=== PATIENT | male | born 1965 | race Caucasian/White ===

== ENCOUNTER 2021-08-13 00:43 | Inpatient (IN) | payer MEDICARE, OTHER ==
[~2021-08-13] VITALS: Ht 180.3 cm; Wt 54.4 kg
--- NOTE | 2021-08-13 00:54 | NUR ---
LOLA FROM [facility] FOR ELEVATED WBC AND BUN. PT A/OX0; AWAKE AND RESPONSIVE TO SOUND. PT TOLERATING R/A WELL WITH NO SOB. CONNECTED PT TO POX AND MONITOR. SAFETY MEASURES IN PLACE.
[2021-08-13] MEDS ORDERED: LIDOCAINE 2% JEL UROJET 10 ML MM ONE (01:13)
--- NOTE | 2021-08-13 01:26 | NUR ---
lac #18g s/l patent and intact. blood and COVID antigen swab collected and sent to lab
--- NOTE | 2021-08-13 01:30 | NUR ---
TOW FEEDER AT PT'S BEDSIDE
[2021-08-13 01:37] LABS: BASOPHILS % (AUTO) 0.2 % (0.0-2.0); EOSINOPHILS % (AUTO) 0.1 % (0.0-6.0); HEMATOCRIT 44 % (39-51); HEMOGLOBIN 14.5 g/dL (13.5-17.5); MEAN CORPUSCULAR HGB CONC 33 g/dl (31.0-36.0); MEAN CORPUSCULAR VOLUME 94 fL (80-96); MONOCYTES # (AUTO) 1.1 K/uL (0.1-1.30); MONOCYTES % (AUTO) 6.6 % (2.0-12.0); NEUTROPHILS # (AUTO) 14.9 K/uL (1.8-8.9); NEUTROPHILS % (AUTO) 87.1 % (43.0-81.0); PLATELET COUNT (AUTO) 184 K/uL (150-450); RED BLOOD CELL COUNT(AUTO) 4.71 MIL/uL (4.5-6.0); WHITE BLOOD COUNT (AUTO) 17.1 K/uL (4.3-11.0)
[2021-08-13 01:46] LABS: ALANINE AMINOTRANSFERASE 35 U/L (12-78); ALBUMIN 3.2 g/dL (3.4-5.0); ALKALINE PHOSPHATASE 119 U/L (46-116); ASPARTATE AMINOTRANSFERASE 37 U/L (15-37); BILIRUBIN,DIRECT 0.1 mg/dL (0.0-0.2); BILIRUBIN,TOTAL 0.4 mg/dL (0.2-1.0); CALCIUM, SERUM 9.4 mg/dL (8.5-10.1); CARBON DIOXIDE 33 mmol/L (21-32); CHLORIDE 104 mmol/L (98-107); CREATININE 0.9 mg/dL (0.6-1.3); GLUCOSE 86 mg/dL (74-106); LIPASE 12 U/L (73-393); POTASSIUM 3.8 mmol/L (3.5-5.1); SODIUM SERUM 144 mmol/L (136-145); TOTAL PROTEIN, SERUM 7.4 g/dL (6.4-8.2); UREA NITROGEN, BLOOD 45 mg/dL (7-18)
[2021-08-13] MEDS ORDERED: LORAZEPAM INJ 2 MG/ML VIAL ONE (01:57)
[2021-08-13] MEDS ORDERED: LORAZEPAM INJ 2 MG/ML VIAL IV ONE (02:00)
[2021-08-13 02:07] LABS: BILIRUBIN,URINE SMALL (NEGATIVE); COLOR,URINE DARK YELLOW (YELLOW); LEUKOCYTE ESTERASE ,URINE NEGATIVE (NEGATIVE); NITRITE, URINE NEGATIVE (NEGATIVE); PROTEIN,URINE TRACE mg/dl (NEGATIVE); UGLUCOSE NEGATIVE (NEGATIVE); UROBILINOGEN,URINE 0.2 EU/dL (0.2)
[2021-08-13 02:20] LABS: BACTERIA,URINE None seen /HPF (None Seen); RBC,URINE 0-2 /HPF (0-2); WBC,URINE 0-2 /HPF (0-3)
[2021-08-13 02:21] LABS: MUCUS,URINE Moderate /LPF (None Seen); SQUAMOUS EPITHELIAL CELL,UR Few /HPF (None Seen)
--- NOTE | 2021-08-13 03:17 | NUR ---
PT SLEEPING IN BED IN NO ACUTE DISTRESS. ALL NEEDS MET AT THIS TIME.
--- NOTE | 2021-08-13 03:29 | NUR ---
CONTRACT SERVICEMAN AT PT'S BEDSIDE
[2021-08-13] MEDS ORDERED: ONDANSETRON HCL/PF 4 MG/2 ML VIAL IVP PRN (03:30)
[2021-08-13] MEDS ORDERED: MAG HYDROX/AL HYDROX/SIMETH 30 ML UDC PO PRN (03:30)
[2021-08-13] MEDS ORDERED: Z GUARD REMEDY 4 OZ OINT TP PRN (03:30)
[2021-08-13] MEDS ORDERED: ACETAMINOPHEN 325 MG TABLET PO PRN (03:30)
[2021-08-13] MEDS ORDERED: MAGNESIUM HYDROXIDE 30 ML UDC PO PRN (03:30)
[2021-08-13] MEDS ORDERED: AZITHROMYCIN 250 MG TABLET PO SCH (04:00)
[2021-08-13] MEDS ORDERED: RISP2TAB5 PO (05:08)
[2021-08-13] MEDS ORDERED: LACT-58 PO (05:08)
[2021-08-13] MEDS ORDERED: DIVA500T2 PO (05:08)
[2021-08-13] MEDS ORDERED: MULT-447 PO (05:08)
[2021-08-13] MEDS ORDERED: DOCU100C36 PO (05:08)
[2021-08-13] MEDS ORDERED: LANS30CA56 PO (05:08)
--- NOTE | 2021-08-13 05:08 | NUR ---
TELE 314-2
[2021-08-13] MEDS ORDERED: AZITHROMYCIN 250 MG TABLET ONE (05:10)
--- NOTE | 2021-08-13 05:33 | NUR ---
REPORT GIVEN TO ANI Rodriguez RN FOR YOEL
[2021-08-13 05:35] LABS: MAGNESIUM 2.4 mg/dL (1.8-2.4); PHOSPHORUS 3.2 mg/dL (2.5-4.9)
[2021-08-13] MEDS ORDERED: CLINDAMYCIN 900 MG/6 ML VIAL ONE (05:38)
[2021-08-13 05:46] LABS: THYROID STIMULATING HORMONE 1.625 uIU/mL (0.358-3.74)
[2021-08-13 05:47] LABS: BASOPHILS % (AUTO) 0.1 % (0.0-2.0); EOSINOPHILS % (AUTO) 0.1 % (0.0-6.0); HEMATOCRIT 41 % (39-51); HEMOGLOBIN 13.7 g/dL (13.5-17.5); LYMPHOCYTES # (AUTO) 0.7 K/uL (0.8-4.8); LYMPHOCYTES % (AUTO) 4.5 % (20.0-44.0); MEAN CORPUSCULAR HGB CONC 33 g/dl (31.0-36.0); MEAN CORPUSCULAR VOLUME 93 fL (80-96); MONOCYTES # (AUTO) 0.9 K/uL (0.1-1.30); MONOCYTES % (AUTO) 5.5 % (2.0-12.0); NEUTROPHILS # (AUTO) 13.8 K/uL (1.8-8.9); NEUTROPHILS % (AUTO) 89.8 % (43.0-81.0); PLATELET COUNT (AUTO) 167 K/uL (150-450); WHITE BLOOD COUNT (AUTO) 15.3 K/uL (4.3-11.0)
--- NOTE | 2021-08-13 05:50 | NUR ---
PT TRANSFERRED TO 314-2 VIA ACLS PROTOCOL. VSS. ALL BELONGINGS WITH PT.
--- NOTE | 2021-08-13 06:07 | NUR ---
[place] in EDM - 08/13/21 at 0657 by AXEL BIBS FOR C/O LABORED BREATHING R/A STARTED WITH "COLD SYMPTOMS" 2 DAYS AGO IN HOME COVID TEST: NEGATIVE. PT A/OX4. PT AMBULATORY WITH STEADY GAIT
[2021-08-13] MEDS: CLINDAMYCIN 300 MG in IV D5W 50 ML IV SCH ×3 (06:12→17:16)
[2021-08-13] MEDS: IV NS 0.9% 1,000 ML IV PRN (06:12)
--- NOTE | 2021-08-13 06:54 | NUR ---
TELE/VP CLINICAL NOTE 0545 RECEIVED PT FROM E.R. VIA GURNEY TO [id number] BY RN/STAFF. PT CAME FROM [facility], FOR FOR ELEVATED WBC AND BUN. RECEIVED PT AWAKE, A/OX2, VERBALLY RESPONSIVE, FORGETFUL, KNOWS NAME AND WHERE HE IS, BUT DOES NOT KNOW DATE/TIME AND SITUATION. RESPIRATIONS EVEN/UNLABORED. RECEIVED ON O2 @4LPM, O2 SAT 100%. ROOM AIR O2 SAT DECREASES <88%. ADJUSTED O2 TO 1LPM, O2 SAT 93%. PRN O2 ORDER TO KEEP O2 SAT 88-93%. IV ACCESS: L-AC #18G INTACT/PATENT/FLUSHES WELL. STARTED ON IVF NS @50ML/HR. CONNECTED TO TELE MONITOR, AND READING SR, HR 92. SKIN ASSESSMENT DONE. BELONGINGS RECORDED. PT IN NO ACUTE DISTRESS. WILL CONT TO MONITOR.
[2021-08-13] MEDS ORDERED: PANTOPRAZOLE 40 MG TABLET.DR PO SCH (07:30)
--- NOTE | 2021-08-13 07:30 | NUR ---
RN NOTES RECEIVED PATIENT IN BED, AWAKE, A/O X2. NOTED PATIENT WITH RESTLESSNESS, REMOVING LINENS. RECEIVED REPORT FROM [facility] NURSE, PATIENT PULLED OUT IV LINE, REMOVED O2 CANNULA AND REMOVED TELE MONITOR. SAFETY MEASURE IN PLACE. SIDE RAILS UP X4, CALL LIGHT PLACED WITHIN EASY REACH. WILL TRY TO REINSERT PERIPHERAL LINE LATER WHEN PATIENT IS MORE CALM. WILL CONTINUE TO MONITOR PATIENT.
--- NOTE | 2021-08-13 07:48 | NUR ---
RN NOTE SKIN ASSESSMENT DONE. NO SACRAL PI NOTED. DRY SCABS ON BLE NOTED. ENDORSED TO NEXT SHIFT NURSE FOR PICTURES
[2021-08-13 08:00] VITALS: BP 94/65
[2021-08-13] MEDS: ENOXAPARIN SODIUM 40 MG/0.4 ML DISP.SYRIN SQ SCH (08:28)
--- NOTE | 2021-08-13 09:24 | NUR ---
WOUND CARE CONSULT: PT PRESENTS WITH BILATERAL FOOT WOUNDS WHICH ARE DRY, PRESENT ON ADMISSION. DR ZELAYA NOTIFIED OF DPM CONSULT REQUEST. PT IS UNCOOPERATIVE AT TIMES. MD IN AGREEMENT WITH PLAN OF CARE.
--- NOTE | 2021-08-13 11:50 | NUR ---
RN NOTES: PATIENT PULLED OUT IV ACCESS ON LAC G #18, REINSERTED G#20 IV PERIPHERAL LINE ON LEFT FOREARM, PATENT AND INTACT. SECURED WITH TAPE AND WRAPPED WITH ROLLED GAUZE.
[2021-08-13] MEDS ORDERED: DIVALPROEX SODIUM 500 MG TABLET.DR PO SCH (12:00)
[2021-08-13] MEDS: ENSURE ENLIVE CHOC 237 ML CAN PO SCH ×2 (12:49→18:46)
[2021-08-13 16:00] VITALS: BP 96/54
[2021-08-13] MEDS: DOCUSATE SODIUM 100 MG CAPSULE PO SCH (16:21)
[2021-08-13] MEDS: AMMONIUM LACTATE 227 GM BOTTLE TP SCH (17:16)
--- NOTE | 2021-08-13 18:45 | NUR ---
RN CLOSING NOTES PATIENT IN BED, AWAKE, A/O X1-2, NOTED WITH CONFUSION AND DISORINETATION, REALITY AWARENESS PROVIDED NEEDED. NO SIGNS OF ACUTE DISTRESS NOTED. STABLE ON ROOM AIR, NO SOB NOTED, BREATHING EVEN AND UNLABORED. IV ACCESS ON LEFT FORE ARM, INTACT AND PATENT, WITH IVF OF NS @ 50 ML/HR INFUSING WELL. SAFETY MEASURE IN PLACE. BED IN LOWEST AND LOCKED POSITION, SIDE RAILS UP X4, CALL LIGHT PLACED WITHIN EASY REACH. WILL ENDORSE TO NET SHIFT FOR CONTINUITY OF CARE.
--- NOTE | 2021-08-13 19:40 | NUR ---
METAL FINISH INSPECTOR OPENING NOTE PATIENT AWAKE IN BED, ALERT/ORIENTED X 1-2 WITH CONFUSION. PT STABLE ON RA, NO S/S OF DISTRESS OR SOB NOTED, BREATHING EVEN AND UNLABORED. PATIENT WAS ON BINDING CUTTER SYNTHETIC CLOTH BUT CONTINUES TO REMOVE LINES, THEREFORE ON STANDBY. IV ACCESS ON LFA #20G INTACT AND INFUSING NS @ 50 ML/HR. SAFETY MEASURES IN PLACE: CALL LIGHT WITHIN REACH, SIDE RAILS UP X 3, BED LOCKED IN LOWEST POSITION, HOB ELEVATED. BED ALARM ON. WILL CONTINUE TO MONITOR PATIENT
[2021-08-13 20:00] VITALS: BP 115/69
[2021-08-13] MEDS: risperiDONE 1 MG TABLET PO SCH (20:49)
[2021-08-13] MEDS: DIVALPROEX SODIUM 125 MG CAP.SPRINK PO SCH (20:49)
[2021-08-14] MEDS: CLINDAMYCIN 300 MG in IV D5W 50 ML IV SCH ×2 (00:08→06:07)
--- NOTE | 2021-08-14 06:36 | NUR ---
MEDICAL CHARGE ENTRY SPECIALIST CLOSING NOTE PATIENT AWAKE IN BED, ALERT/ORIENTED X 1 WITH CONFUSION, TALKS TO SELF. PT STABLE ON RA, NO S/S OF DISTRESS OR SOB NOTED, BREATHING EVEN AND UNLABORED, SPO2: 95%. PATIENT WAS ON FOREMAN SHIPPING DEPARTMENT BUT CONTINUES TO REMOVE, THEREFORE ON STANDBY. PATIENT REMOVING BLANKETS, DIAPER AND GOWN ALL NIGHT. IV ACCESS ON LFA #20G INTACT AND INFUSING NS @ 50 ML/HR. MEDICATIONS GIVEN ORDERED, CRUSHED IN PUDDING, PATIENT TOLERATED WELL. SAFETY MEASURES IN PLACE: CALL LIGHT WITHIN REACH, SIDE RAILS UP X 3, BED LOCKED IN LOWEST POSITION, HOB ELEVATED, BED ALARM ON. WILL ENDORSE TO DAY SHIFT NURSE FOR CONTINUITY OF CARE
[2021-08-14 07:24] LABS: BASOPHILS % (AUTO) 0.3 % (0.0-2.0); EOSINOPHILS % (AUTO) 0.6 % (0.0-6.0); HEMATOCRIT 37 % (39-51); HEMOGLOBIN 12.6 g/dL (13.5-17.5); LYMPHOCYTES # (AUTO) 0.8 K/uL (0.8-4.8); LYMPHOCYTES % (AUTO) 11.9 % (20.0-44.0); MEAN CORPUSCULAR HGB CONC 34 g/dl (31.0-36.0); MEAN CORPUSCULAR VOLUME 93 fL (80-96); MONOCYTES # (AUTO) 0.5 K/uL (0.1-1.30); MONOCYTES % (AUTO) 7.1 % (2.0-12.0); NEUTROPHILS # (AUTO) 5.3 K/uL (1.8-8.9); NEUTROPHILS % (AUTO) 80.1 % (43.0-81.0); PLATELET COUNT (AUTO) 153 K/uL (150-450); RED BLOOD CELL COUNT(AUTO) 4.04 MIL/uL (4.5-6.0); WHITE BLOOD COUNT (AUTO) 6.6 K/uL (4.3-11.0)
[2021-08-14 07:43] LABS: ALBUMIN 2.4 g/dL (3.4-5.0); BILIRUBIN,TOTAL 0.4 mg/dL (0.2-1.0); CALCIUM, SERUM 8.3 mg/dL (8.5-10.1); CREATININE 0.7 mg/dL (0.6-1.3); MAGNESIUM 2.1 mg/dL (1.8-2.4); PHOSPHORUS 2.8 mg/dL (2.5-4.9); POTASSIUM 3.5 mmol/L (3.5-5.1); TOTAL PROTEIN, SERUM 6.2 g/dL (6.4-8.2)
--- NOTE | 2021-08-14 07:45 | NUR ---
RN NOTES IN BED RESTING, NOT IN ACUTE DISTRESS. A/O X0-1, CONFUSED. BREATHING EVEN AND UNLABORED. ON TELE BUT PATIENT REMOVES SITE INTERPRETER. SAFETY MEASURES IN PLACE. WILL CONTINUE TO MONITOR.
[2021-08-14 07:54] LABS: THYROID STIMULATING HORMONE 1.066 uIU/mL (0.358-3.74)
[2021-08-14 08:00] VITALS: BP 118/67
[2021-08-14] MEDS: ENSURE ENLIVE CHOC 237 ML CAN PO SCH ×3 (09:45→18:15)
[2021-08-14] MEDS: PANTOPRAZOLE 40 MG TABLET.DR PO SCH (09:46)
[2021-08-14] MEDS: ENOXAPARIN SODIUM 40 MG/0.4 ML DISP.SYRIN SQ SCH (09:46)
[2021-08-14] MEDS: AZITHROMYCIN 250 MG TABLET PO SCH (09:46)
[2021-08-14] MEDS: DIVALPROEX SODIUM 125 MG CAP.SPRINK PO SCH ×2 (09:47→21:00)
[2021-08-14] MEDS: DOCUSATE SODIUM 100 MG CAPSULE PO SCH ×2 (09:47→16:19)
[2021-08-14] MEDS: risperiDONE 1 MG TABLET PO SCH ×2 (09:47→21:00)
[2021-08-14] MEDS: AMMONIUM LACTATE 227 GM BOTTLE TP SCH ×2 (09:48→16:17)
--- NOTE | 2021-08-14 10:28 | NUR ---
RN NOTES RICH SANCHEZ NP, SEEN PATIENT AT BEDSIDE; FOR PSYCH CONSULT.
[2021-08-14] MEDS ORDERED: LORAZEPAM 1 MG TABLET PO PRN (12:00)
[2021-08-14] MEDS: CLINDAMYCIN 600 MG in IV D5W 50 ML IV SCH ×2 (12:51→21:00)
[2021-08-14 16:00] VITALS: BP 111/79
--- NOTE | 2021-08-14 18:56 | NUR ---
RN NOTES PATIENT CONSTANTLY REMOVES GOWN, BLANKET, AND OTHER LINEN IN BED; ATTEMPTED TO REDIRECT BUT PATIENT IS CONFUSED AND UNABLE TO COMPREHEND. IV LINE STILL INTACT. VERBALLY RESPONSIVE BUT IS NON-COHERENT. SAFETY MEASURES MAINTAINED.
--- NOTE | 2021-08-14 18:57 | NUR ---
RN NOTES' SEEN BY DR. ECHEVERRIA FOR PSYCH CONSULT.
--- NOTE | 2021-08-14 19:30 | NUR ---
BAND AND CUFF CUTTER OPENING NOTES RECEIVED PATIENT IN BED; AWAKE, ALERT AND ORIENTED X1, CONFUSED. BREATHING EVENLY AND NONLABORED. ON ROOM AIR, TOLERATING WELL. IN NO ACUTE DISTRESS NOTED. ON TELEMETRY MONITORING BUT PATIENT KEPT ON REMOVING EXTERNAL SOLDERER BARREL RIBS. WITH IV ACCESS ON LEFT FOREARM G#20 INFUSING WITH NS 1L REGULATED AT 50 ML/HR; PATENT, INTACT AND FLUSHES WELL. NEEDS ATTENDED. SAFETY MEASURES IMPLEMENTED: CALL LIGHT AND TABLE WITHIN EASY REACH, SIDE RAILS UP X2, BED IN LOWEST LOCKED POSITION. WILL CONTINUE PLAN OF CARE.
[2021-08-14 19:56] VITALS: BP 98/57
[2021-08-14 20:00] VITALS: BP 98/57
[2021-08-14] MEDS ORDERED: MIRTAZAPINE 15 MG TABLET PO SCH (22:00)
--- NOTE | 2021-08-14 23:10 | NUR ---
ADMISSIONS CLINICIAN NOTES PATIENT KEPT ON SHOUTING, TALKING TO SELF, REMOVING GOWN, BLANKETS, PILLOWS AND OTHER LINENS IN BED. TRIED TO DIVERT ATTENTION BUT PATIENT IS CONFUSED AND UNABLE TO UNDERSTAND. IV ACCESS STILL INTACT. SAFETY MEASURES MAINTAINED. PRN LORAZEPAM 1 MG 1 TAB GIVEN PO ORDERED AT 2313. WILL CONTINUE TO MONITOR
[2021-08-15 04:00] VITALS: BP 132/72
[2021-08-15 04:05] VITALS: BP 132/72
[2021-08-15] MEDS: CLINDAMYCIN 600 MG in IV D5W 50 ML IV SCH ×2 (05:21→12:11)
--- NOTE | 2021-08-15 07:05 | NUR ---
CAKE MIXER CLOSING NOTES PATIENT IN BED; AWAKE, ALERT AND ORIENTED X1. BREATHING EVENLY AND NONLABORED. IN NO ACUTE DISTRESS NOTED. ON ROOM AIR; TOLERATING WELL. NEEDS ATTENDED TO. SAFETY PRECAUTIONS IN PLACED. ENDORSED TO MORNING SHIFT FOR CONTINUITY OF CARE.
[2021-08-15 07:25] LABS: CALCIUM, SERUM 8.1 mg/dL (8.5-10.1); CREATININE 0.6 mg/dL (0.6-1.3); PHOSPHORUS 3.2 mg/dL (2.5-4.9)
--- NOTE | 2021-08-15 07:52 | NUR ---
RN NOTES ASSISTED PHLEB TECH AT BEDSIDE FOR BLOOD DRAW. ABLE TO DRAW BLOOD FOR AM LABS.
[2021-08-15 08:34] LABS: BASOPHILS % (AUTO) 0.2 % (0.0-2.0); EOSINOPHILS % (AUTO) 0.5 % (0.0-6.0); HEMATOCRIT 37 % (39-51); HEMOGLOBIN 12.4 g/dL (13.5-17.5); LYMPHOCYTES # (AUTO) 0.9 K/uL (0.8-4.8); MEAN CORPUSCULAR HGB CONC 33 g/dl (31.0-36.0); MEAN CORPUSCULAR VOLUME 93 fL (80-96); MONOCYTES # (AUTO) 0.6 K/uL (0.1-1.30); MONOCYTES % (AUTO) 10.3 % (2.0-12.0); NEUTROPHILS # (AUTO) 4.2 K/uL (1.8-8.9); PLATELET COUNT (AUTO) 166 K/uL (150-450); RED BLOOD CELL COUNT(AUTO) 4.03 MIL/uL (4.5-6.0); WHITE BLOOD COUNT (AUTO) 5.7 K/uL (4.3-11.0)
--- NOTE | 2021-08-15 09:26 | NUR ---
RN NOTES DR. ECHEVERRIA AT BEDSIDE TO SEE THE PATIENT FOR PSYCH FOLLOW-UP.
[2021-08-15] MEDS: IV NS 0.9% 1,000 ML IV PRN (09:42)
[2021-08-15] MEDS: risperiDONE 1 MG TABLET PO SCH (09:43)
[2021-08-15] MEDS: AZITHROMYCIN 250 MG TABLET PO SCH (09:43)
[2021-08-15] MEDS: DOCUSATE SODIUM 100 MG CAPSULE PO SCH ×2 (09:43→16:04)
[2021-08-15] MEDS: PANTOPRAZOLE 40 MG TABLET.DR PO SCH (09:43)
[2021-08-15] MEDS: DIVALPROEX SODIUM 125 MG CAP.SPRINK PO SCH (09:44)
[2021-08-15] MEDS: AMMONIUM LACTATE 227 GM BOTTLE TP SCH ×2 (09:44→16:04)
[2021-08-15] MEDS: ENSURE ENLIVE CHOC 237 ML CAN PO SCH ×2 (09:44→12:12)
[2021-08-15] MEDS: ENOXAPARIN SODIUM 40 MG/0.4 ML DISP.SYRIN SQ SCH (09:45)
--- NOTE | 2021-08-15 10:00 | NUR ---
RN NOTES RICH SANCHEZ NP, AT BEDSIDE TO SEE THE PATIENT.
--- NOTE | 2021-08-15 12:07 | NUR ---
RN NOTES WILL BE D/C'D BACK TO [facility] PER COMMUNITY LIVING COACH; SUGARCANE RESEARCH TECHNICIAN TIME 1430 PER HOG COUNTER.
[2021-08-15] MEDS ORDERED: DOXY100C2 PO (12:12)
[2021-08-15] MEDS ORDERED: LORA-259 PO (12:12)
[2021-08-15] MEDS ORDERED: MIRT-121 PO (12:12)
--- NOTE | 2021-08-15 13:12 | NUR ---
RN NOTES PHOTOS OF SKIN ISSUES TAKEN AND PLACED IN PATIENT'S CHART.
--- NOTE | 2021-08-15 13:30 | NUR ---
RN NOTES CALLED [facility] ([phone]) FOR REPORT BUT NO RESPONSE; LEFT VOICEMAIL. WILL TRY TO CALL AGAIN.
--- NOTE | 2021-08-15 15:02 | NUR ---
RN NOTES IV LINE REMOVED; NO BLEEDING NOTED.
--- NOTE | 2021-08-15 15:25 | NUR ---
RN NOTES PATIENT REPORT AND DISCHARGE INSTRUCTIONS/EDUCATION GIVEN TO JUDITH BRISENO NCA CERTIFIED CONCIERGE AT [facility].
--- NOTE | 2021-08-15 15:26 | NUR ---
RN NOTES 2 EMT'S AT BEDSIDE TO PICKUP PATIENT. BEDSIDE ENDORSEMENT DONE. DISCHARGE PACKET PROVIDED.
--- NOTE | 2021-08-15 15:49 | NUR ---
RN NOTES PICKED UP BY AMBULANCE FOR DISCHARGE BACK TO [facility]. CHARGE NURSE AND AWARE.
== END 2021-08-15 16:15 | DRG 605 ==
LOC: ER 00:48 → TRANSITION 03:05 → TELE 05:06
PROVIDERS: ADMIT Nurse Practitioner Family; ATTEND Nurse Practitioner Family
DX: S91.301A Unspecified open wound, right foot, initial encounter (principal); E87.2 Acidosis; E44.1 Mild protein-calorie malnutrition; R64 Cachexia; R65.10 Systemic inflammatory response syndrome (SIRS) of non-infectious origin without acute organ dysfunction; I11.0 Hypertensive heart disease with heart failure; I50.9 Heart failure, unspecified; G40.909 Epilepsy, unspecified, not intractable, without status epilepticus; I48.91 Unspecified atrial fibrillation; K21.9 Gastro-esophageal reflux disease without esophagitis; Z88.0 Allergy status to penicillin; G62.9 Polyneuropathy, unspecified; E88.09 Other disorders of plasma-protein metabolism, not elsewhere classified; J44.9 Chronic obstructive pulmonary disease, unspecified; M20.41 Other hammer toe(s) (acquired), right foot; L85.3 Xerosis cutis; M20.42 Other hammer toe(s) (acquired), left foot; M62.562 Muscle wasting and atrophy, not elsewhere classified, left lower leg; M62.561 Muscle wasting and atrophy, not elsewhere classified, right lower leg; E86.0 Dehydration; F25.0 Schizoaffective disorder, bipolar type; L89.896 Pressure-induced deep tissue damage of other site; R23.4 Changes in skin texture; S91.302A Unspecified open wound, left foot, initial encounter; X58.XXXA Exposure to other specified factors, initial encounter; Y92.9 Unspecified place or not applicable; Z20.822 Contact with and (suspected) exposure to COVID-19
CPT/HCPCS: 36415; 71045-TC; 80048-TC; 80053-TC; 80076-TC; 80164-TC; 81001; 82140-TC; 82962-TC; 83605-TC; 83690-TC; 83735-TC; 84100-TC; 84443-TC; 84484-TC; 85025-TC; 85730-TC; 87040-TC; 87081-TC; 87086-TC; A6403; C9803; G0378; J1650; J2060; J2405; J3490; J7030; J7060

== ENCOUNTER 2021-09-02 19:18 | Emergency (ER) | payer MEDICARE, OTHER ==
[~2021-09-02] VITALS: Ht 167.6 cm; Wt 59.0 kg
[~2021-09-02 19:18] MED LIST: ACET325C7 PO; AMIN887L PO; ASCO500C17 PO; BISA10SU11 RC; DIVA500T2 PO; DOCU100C36 PO; LACT-209 GT; LORA-259 PO; MAGN400O6 PO; MIRT-121 PO; MULT-447 PO; NA P133E RC; RISP2TAB5 PO; ZINC220C6 PO
[2021-09-02] MEDS ORDERED: DIATR MEGLU/DIATRIZOATE SODIUM 30 ML BOTTLE (GASTROGRAPHIN) ONE (20:18)
[2021-09-02] MEDS ORDERED: DIATR MEGLU/DIATRIZOATE SODIUM 120 ML BOTTLE (GASTROGRAPHIN) PO ONE (20:30)
--- NOTE | 2021-09-02 20:41 | NUR ---
LOLA FROM [facility] FOR PULLED OUT GT. PT CHANGED INTO GOWN AND PLACED ON MONITOR AND PULSE OX AND V/S WNL.
--- NOTE | 2021-09-02 21:19 | NUR ---
[facility] ETA: 30MIN
--- NOTE | 2021-09-02 21:20 | NUR ---
CALLED [facility] AND GAVE REPORT TO MARIANNE
--- NOTE | 2021-09-02 21:51 | NUR ---
[facility] AT BED SIDE TO PLATINUM AND PALLADIUM KETTLE TENDER THE PT
--- NOTE | 2021-09-02 22:00 | NUR ---
PT WAS PICKED UP BY [facility] IN STABLE CONDITION
[2021-09-02 22:02] VITALS: BP 121/71
== END 2021-09-02 22:04 ==
LOC: ER 19:21
DX: K94.23 Gastrostomy malfunction (principal); I11.0 Hypertensive heart disease with heart failure; I50.9 Heart failure, unspecified; I48.91 Unspecified atrial fibrillation; K21.9 Gastro-esophageal reflux disease without esophagitis; F20.9 Schizophrenia, unspecified; F17.200 Nicotine dependence, unspecified, uncomplicated; Z86.69 Personal history of other diseases of the nervous system and sense organs; Z88.0 Allergy status to penicillin; Z79.899 Other long term (current) drug therapy
CPT/HCPCS: 43762; 74018; 99284; Q9963 ×2